=== PATIENT | male | born 1960 | race Two or more races ===

== ENCOUNTER → 2017-06-12 | Outpatient (CLI) | payer OTHER | END | disposition home or self-care (01) | LOC: HKI 14:25 | DX: M16.12 Unilateral primary osteoarthritis, left hip (principal) | CPT/HCPCS: Z7500 ==

== ENCOUNTER → 2017-08-25 | Outpatient (CLI) | payer OTHER | END | disposition home or self-care (01) | LOC: HKI 09:57 | DX: Z01.818 Encounter for other preprocedural examination (principal) | CPT/HCPCS: Z7500 ==

== ENCOUNTER 2017-08-28 08:49 | Inpatient (IN) | payer OTHER ==
[2017-08-28 09:49] LABS: ADD MAN DIFF? NO
[2017-08-28 09:51] LABS: WHITE BLOOD COUNT 8.7 10^3/ul (4.8-10.8)
[2017-08-28 09:51] LABS: BASOPHILS % 0.3 % (0.0-2.0); EOSINOPHILS # 0.1 10^3/ul (0.0-0.5); HEMATOCRIT 44.4 % (42.0-52.0); HEMOGLOBIN 15.5 g/dl (14.0-18.0); LYMPHOCYTES # 1.8 10^3/ul (0.8-2.9); LYMPHOCYTES % 20.6 % (15.0-51.0); MEAN CORPUSCULAR HEMOGLOBIN 30.6 pg (29.0-33.0); MEAN CORPUSCULAR HGB CONC 34.9 g/dl (32.0-37.0); MEAN CORPUSCULAR VOLUME 87.7 fl (82.0-101.0); MEAN PLATELET VOLUME 10.1 fl (7.4-10.4); MONOCYTE # 0.8 10^3/ul (0.3-0.9); MONOCYTES % 9.1 % (0.0-11.0); NEUTROPHILS % 68.7 % (39.0-77.0); PLATELET COUNT 276 10^3/UL (140-415); RED BLOOD COUNT 5.06 10^6/ul (4.70-6.10)
[2017-08-28] MEDS ORDERED: CEFAZOLIN 2 GM/50 ML (PMX) 50 ML IVPB (10:00)
[2017-08-28] MEDS: LACTATED RINGER'S 1,000 ML IV* (10:00)
[2017-08-28] MEDS ORDERED: TRANEXAMIC ACID 1,000 MG in NS 100 ML INTRA-OP X1 IVPB (10:00)
[2017-08-28 10:07] LABS: ALANINE AMINOTRANSFERASE 41 IU/L (13-69); ALBUMIN 4.3 g/dl (3.3-4.9); ALKALINE PHOSPHATASE 82 IU/L (42-121); ANION GAP 15 (8-16); ASPARTATE AMINO TRANSFERASE 30 IU/L (15-46); BILIRUBIN,INDIRECT 1.6 mg/dl (0-1.1); BILIRUBIN,TOTAL 1.6 mg/dl (0.2-1.3); CARBON DIOXIDE 26 mmol/L (21-31); CHLORIDE 105 mmol/L (97-110); GLUCOSE 92 mg/dl (70-220); TOTAL PROTEIN 8.2 g/dl (6.1-8.1)
[2017-08-28 10:09] LABS: BLOOD UREA NITROGEN 20 mg/dl (7-20); CALCIUM 9.2 mg/dl (8.4-10.2); CREATININE 0.65 mg/dl (0.61-1.24); POTASSIUM 4.3 mmol/L (3.5-5.1); SODIUM 142 mmol/L (135-144)
[2017-08-28 10:10] LABS: INR 1.08; PROTIME 14.1 Sec (11.9-14.9); PT RATIO 1.1
[2017-08-28 10:11] LABS: PARTIAL THROMBOPLASTIN TIME 30.5 Sec (25.0-35.0)
[2017-08-28] MEDS: oxyCODONE (CR) 10 MG TAB [oxyCONTIN] PO (10:14)
[2017-08-28] MEDS: LANSOPRAZOLE 30 MG CAP PO (10:14)
[2017-08-28] MEDS: ONDANSETRON 4 MG INJ IV ×3 (10:14→20:42)
[2017-08-28] MEDS: CELECOXIB 200 MG CAP PO (10:14)
[2017-08-28] MEDS: DEXAMETHASONE 4 MG/ML 1 ML INJ IV (10:14)
[2017-08-28] MEDS: ACETAMINOPHEN 1000MG/100ML IV 100 ML IVPB (10:15)
[2017-08-28] MEDS: HIP PAIN COCKTAIL (CEFUROXIME) INJ ×2 (11:00→12:56)
[2017-08-28] MEDS ORDERED: LIDOCAINE 2% (SDV) 5 ML INJ (11:34)
[2017-08-28] MEDS ORDERED: NEOSTIGMINE 3 MG/3 ML SYRINGE ×2 (11:34→14:14)
[2017-08-28] MEDS ORDERED: SUCCINYLCHOLINE CHLORIDE 100 MG/5 ML SYG IV (11:34)
[2017-08-28] MEDS ORDERED: GLYCOPYRROLATE 0.4 MG INJ ×2 (11:34→14:14)
[2017-08-28] MEDS ORDERED: PROPOFOL 20 ML (11:34)
[2017-08-28] MEDS ORDERED: ROCURONIUM 50 MG INJ (11:34)
[2017-08-28] MEDS ORDERED: morphine SULFATE/PF (10 MG/10 ML) INJ (11:35)
[2017-08-28] MEDS ORDERED: BUPIVACAINE 0.75%/DEXT (SPINAL) 2 ML INJ (11:35)
[2017-08-28] MEDS ORDERED: CEFAZOLIN 1 GM INJ (11:35)
[2017-08-28] MEDS: TRANEXAMIC ACID 1,000 MG in NS 100 ML PRE-OP X1 IVPB ×2 (12:15→12:57)
[2017-08-28] MEDS: BACITRACIN 50000 UNITS INJ (12:56)
[2017-08-28] MEDS: POLYMYXIN B 500000 UNIT INJ (12:56)
[2017-08-28] MEDS ORDERED: TRIMETHOBENZAMIDE 100 MG/ML VIAL IM (15:00)
[2017-08-28] MEDS ORDERED: NACL 0.9% 3 ML SYG IV (15:00)
[2017-08-28] MEDS ORDERED: MAGNESIUM HYDROXIDE 30ML CUP PO ×2 (15:00→18:00)
[2017-08-28] MEDS ORDERED: NA PHOSPHATE/BIPHOS 133 ML ENEMA PR (15:00)
[2017-08-28] MEDS ORDERED: oxyCODONE 5 MG TAB PO ×2 (15:00)
[2017-08-28] MEDS ORDERED: BISACODYL 10 MG SUPP PR (15:00)
[2017-08-28] MEDS ORDERED: SENNA/DOCUSATE NA (8.6MG/50MG) TAB PO (15:00)
[2017-08-28] MEDS ORDERED: ZOLPIDEM 5 MG TAB PO (15:00)
[2017-08-28] MEDS ORDERED: NALOXONE (0.4 MG/ML) INJ IV ×2 (15:00→17:30)
[2017-08-28] MEDS: CEFAZOLIN 1 GM/50 ML (PMX) 50 ML IVPB ×2 (15:40→23:21)
[2017-08-28] MEDS: ASPIRIN (EC) 325 MG TAB PO ×2 (15:41→20:42)
[2017-08-28] MEDS: DOCUSATE SODIUM 100 MG CAP PO (15:41)
[2017-08-28] MEDS ORDERED: ONDANSETRON 4 MG INJ IV ×2 (17:30→18:00)
[2017-08-28] MEDS ORDERED: DIPHENHYDRAMINE 50 MG INJ IV (17:30)
[2017-08-28] MEDS ORDERED: HYDROmorphONE 0.5 MG/0.5 ML SYG IV ×2 (17:30)
[2017-08-28] MEDS ORDERED: LORAZEPAM 0.5 MG TAB PO (18:00)
[2017-08-28] MEDS ORDERED: BISACODYL (EC) 5 MG TAB PO (18:00)
[2017-08-28] MEDS: SOD CHLORIDE 0.9% 1,000 ML IV (18:21)
[2017-08-28] MEDS: DIPHENHYDRAMINE 50 MG INJ IV (20:03)
[2017-08-29] MEDS: ONDANSETRON 4 MG INJ IV ×2 (03:00→09:00)
[2017-08-29] MEDS: DIPHENHYDRAMINE 50 MG INJ IV (04:42)
[2017-08-29 05:08] LABS: ADD MAN DIFF? NO
[2017-08-29 05:14] LABS: WHITE BLOOD COUNT 16.4 10^3/ul (4.8-10.8)
[2017-08-29 05:14] LABS: ABNORMAL IP MESSAGE 1; BASOPHILS % 0.1 % (0.0-2.0); HEMATOCRIT 34.4 % (42.0-52.0); HEMOGLOBIN 11.8 g/dl (14.0-18.0); LYMPHOCYTES # 1.3 10^3/ul (0.8-2.9); LYMPHOCYTES % 7.7 % (15.0-51.0); MEAN CORPUSCULAR HEMOGLOBIN 30.7 pg (29.0-33.0); MEAN CORPUSCULAR HGB CONC 34.3 g/dl (32.0-37.0); MEAN CORPUSCULAR VOLUME 89.6 fl (82.0-101.0); MEAN PLATELET VOLUME 10.8 fl (7.4-10.4); MONOCYTE # 1.7 10^3/ul (0.3-0.9); MONOCYTES % 10.5 % (0.0-11.0); NEUTROPHIL # 13.4 10^3/ul (1.6-7.5); NEUTROPHILS % 81.3 % (39.0-77.0); PLATELET COUNT 237 10^3/UL (140-415); POSITIVE DIFF @See below; RED BLOOD COUNT 3.84 10^6/ul (4.70-6.10); RED CELL DISTRIBUTION WIDTH 12.1 % (11.5-14.5)
[2017-08-29 05:25] LABS: ALANINE AMINOTRANSFERASE 32 IU/L (13-69); ALBUMIN 3.2 g/dl (3.3-4.9); ALKALINE PHOSPHATASE 51 IU/L (42-121); ASPARTATE AMINO TRANSFERASE 26 IU/L (15-46); BILIRUBIN,INDIRECT 0.9 mg/dl (0-1.1); BILIRUBIN,TOTAL 0.9 mg/dl (0.2-1.3); TOTAL PROTEIN 6.2 g/dl (6.1-8.1)
[2017-08-29 05:27] LABS: ANION GAP 13 (8-16); BLOOD UREA NITROGEN 18 mg/dl (7-20); CALCIUM 8.2 mg/dl (8.4-10.2); CARBON DIOXIDE 28 mmol/L (21-31); CHLORIDE 105 mmol/L (97-110); CREATININE 0.63 mg/dl (0.61-1.24); GLUCOSE 113 mg/dl (70-220); POTASSIUM 4.7 mmol/L (3.5-5.1); SODIUM 141 mmol/L (135-144)
[2017-08-29] MEDS: SOD CHLORIDE 0.9% 1,000 ML IV ×2 (06:10→15:37)
[2017-08-29] MEDS: CEFAZOLIN 1 GM/50 ML (PMX) 50 ML IVPB (06:10)
[2017-08-29] MEDS: PANTOPRAZOLE (EC) 40 MG TAB PO (06:10)
[2017-08-29] MEDS: FERROUS FUMARATE (SR) TAB PO ×2 (09:25→20:31)
[2017-08-29] MEDS: DOCUSATE SODIUM 100 MG CAP PO ×2 (09:26→20:30)
[2017-08-29] MEDS: oxyCODONE 5 MG TAB PO ×3 (09:26→20:31)
[2017-08-29] MEDS: ASPIRIN (EC) 325 MG TAB PO ×2 (09:27→20:31)
[2017-08-29] MEDS: BETHANECHOL 25 MG TAB PO ×2 (09:27→14:34)
[2017-08-29] MEDS: CELECOXIB 200 MG CAP PO ×2 (09:27→20:31)
[2017-08-29 10:16] LABS: ADD UMIC NO; UR ASCORBIC ACID NEGATIVE (NEGATIVE); UR BILIRUBIN (Dip) NEGATIVE (NEGATIVE); UR BLOOD (Dip) NEGATIVE (NEGATIVE); UR CLARITY CLEAR (CLEAR); UR COLOR STRAW (YELLOW); UR GLUCOSE (Dip) NEGATIVE (NEGATIVE); UR KETONES (Dip) NEGATIVE (NEGATIVE); UR LEUKOCYTE ESTERASE (Dip) NEGATIVE Leu/ul (NEGATIVE); UR NITRITE (Dip) NEGATIVE (NEGATIVE); UR SPECIFIC GRAVITY (Dip) 1.006 (1.003-1.030); UR TOTAL PROTEIN (Dip) NEGATIVE (NEGATIVE); UR UROBILINOGEN (Dip) NEGATIVE (NEGATIVE)
[2017-08-30] MEDS: DIPHENHYDRAMINE 50 MG INJ IV (01:46)
[2017-08-30] MEDS: SOD CHLORIDE 0.9% 1,000 ML IV (04:07)
[2017-08-30 05:39] LABS: ADD MAN DIFF? NO
[2017-08-30 05:42] LABS: WHITE BLOOD COUNT 9.7 10^3/ul (4.8-10.8)
[2017-08-30 05:42] LABS: BASOPHILS % 0.2 % (0.0-2.0); EOSINOPHILS # 0.1 10^3/ul (0.0-0.5); EOSINOPHILS % 1.1 % (0.0-7.0); HEMOGLOBIN 11.2 g/dl (14.0-18.0); LYMPHOCYTES # 2.7 10^3/ul (0.8-2.9); LYMPHOCYTES % 28.3 % (15.0-51.0); MEAN CORPUSCULAR HEMOGLOBIN 30.5 pg (29.0-33.0); MEAN CORPUSCULAR HGB CONC 33.9 g/dl (32.0-37.0); MEAN CORPUSCULAR VOLUME 89.9 fl (82.0-101.0); MONOCYTE # 1.3 10^3/ul (0.3-0.9); MONOCYTES % 13.3 % (0.0-11.0); NEUTROPHIL # 5.5 10^3/ul (1.6-7.5); NEUTROPHILS % 56.7 % (39.0-77.0); PLATELET COUNT 212 10^3/UL (140-415); RED BLOOD COUNT 3.67 10^6/ul (4.70-6.10); RED CELL DISTRIBUTION WIDTH 12.5 % (11.5-14.5)
[2017-08-30] MEDS: PANTOPRAZOLE (EC) 40 MG TAB PO (05:51)
[2017-08-30 06:02] LABS: ANION GAP 11 (8-16); BLOOD UREA NITROGEN 22 mg/dl (7-20); CALCIUM 8.1 mg/dl (8.4-10.2); CARBON DIOXIDE 28 mmol/L (21-31); CHLORIDE 106 mmol/L (97-110); CREATININE 0.87 mg/dl (0.61-1.24); GLUCOSE 88 mg/dl (70-220); POTASSIUM 3.8 mmol/L (3.5-5.1); SODIUM 141 mmol/L (135-144)
[2017-08-30] MEDS: FERROUS FUMARATE (SR) TAB PO (08:44)
[2017-08-30] MEDS: ASPIRIN (EC) 325 MG TAB PO (08:44)
[2017-08-30] MEDS: CELECOXIB 200 MG CAP PO (08:44)
[2017-08-30] MEDS: DOCUSATE SODIUM 100 MG CAP PO (08:45)
[2017-08-30] MEDS: oxyCODONE 5 MG TAB PO (09:40)
== END 2017-08-30 15:09 | disposition home health service (06) | DRG 470 ==
LOC: REC 08:49 → MS1 17:30
PROC: 0SRB04A Replacement of Left Hip Joint with Ceramic on Polyethylene Synthetic Substitute, Uncemented, Open Approach (ICD-10-PCS; principal; 2017-08-28 11:00)
DX: M16.12 Unilateral primary osteoarthritis, left hip (principal)
CPT/HCPCS: 72170; 73500; 73530; 80048; 80053; 80076; 81003; 85025; 85610; 85730; 86850; 86900; 86901; 86920; 87086; 88304; 88311; 97110; 97116; 97162; 97530

== ENCOUNTER → 2017-09-12 | Outpatient (CLI) | payer OTHER | END | disposition home or self-care (01) | LOC: HKI 10:32 | DX: Z09 Encounter for follow-up examination after completed treatment for conditions other than malignant neoplasm (principal); Z96.642 Presence of left artificial hip joint | CPT/HCPCS: 73502 ==

== ENCOUNTER → 2017-10-13 | Outpatient (CLI) | payer OTHER | END | disposition home or self-care (01) | LOC: HKI 10:02 | DX: Z09 Encounter for follow-up examination after completed treatment for conditions other than malignant neoplasm (principal); Z96.642 Presence of left artificial hip joint | CPT/HCPCS: 73502 ==

== ENCOUNTER → 2017-11-10 | Outpatient (CLI) | payer OTHER | END | disposition home or self-care (01) | LOC: HKI 09:32 | DX: Z09 Encounter for follow-up examination after completed treatment for conditions other than malignant neoplasm (principal); Z96.642 Presence of left artificial hip joint | CPT/HCPCS: 73502 ==

== ENCOUNTER → 2018-03-02 | Outpatient (CLI) | payer OTHER | END | disposition home or self-care (01) | LOC: HKI 09:19 | DX: Z47.1 Aftercare following joint replacement surgery (principal); Z96.642 Presence of left artificial hip joint | CPT/HCPCS: 73502 ==

== ENCOUNTER 2018-10-24 11:13 | Emergency (ER) | payer OTHER ==
[2018-10-24] MEDS: SOD CHLORIDE 0.9% 1,000 ML IV (12:41)
[2018-10-24 12:53] LABS: ADD MAN DIFF? NO
[2018-10-24] MEDS ORDERED: LORAZEPAM 2 MG INJ (12:59)
[2018-10-24 13:01] LABS: BASOPHILS % 0.4 % (0.0-2.0); EOSINOPHILS % 0.1 % (0.0-7.0); HEMOGLOBIN 15.4 g/dl (14.0-18.0); LYMPHOCYTES # 2.9 10^3/ul (0.8-2.9); LYMPHOCYTES % 28.4 % (15.0-51.0); MEAN CORPUSCULAR HEMOGLOBIN 30.5 pg (29.0-33.0); MEAN CORPUSCULAR HGB CONC 34.2 g/dl (32.0-37.0); MEAN CORPUSCULAR VOLUME 89.1 fl (82.0-101.0); MEAN PLATELET VOLUME 10.1 fl (7.4-10.4); MONOCYTE # 0.9 10^3/ul (0.3-0.9); MONOCYTES % 8.8 % (0.0-11.0); NEUTROPHIL # 6.4 10^3/ul (1.6-7.5); NEUTROPHILS % 61.9 % (39.0-77.0); PLATELET COUNT 305 10^3/UL (140-415); RED BLOOD COUNT 5.05 10^6/ul (4.70-6.10)
[2018-10-24 13:01] LABS: WHITE BLOOD COUNT 10.4 10^3/ul (4.8-10.8)
[2018-10-24 13:22] LABS: ETHANOL < 10.0 mg/dl (0-0)
[2018-10-24 13:23] LABS: ALANINE AMINOTRANSFERASE 37 IU/L (13-69); ALBUMIN 4.2 g/dl (3.3-4.9); ALBUMIN/GLOBULIN RATIO 1.05; ALKALINE PHOSPHATASE 97 IU/L (42-121); ANION GAP 11 (5-13); ASPARTATE AMINO TRANSFERASE 33 IU/L (15-46); BILIRUBIN,INDIRECT 1.1 mg/dl (0-1.1); BILIRUBIN,TOTAL 1.1 mg/dl (0.2-1.3); BLOOD UREA NITROGEN 11 mg/dl (7-20); CALCIUM 9.1 mg/dl (8.4-10.2); CARBON DIOXIDE 24 mmol/L (21-31); CHLORIDE 104 mmol/L (97-110); CREATININE 0.65 mg/dl (0.61-1.24); Estimated GFR > 60 mL/min (>60); GLUCOSE 153 mg/dl (70-220); LIPASE 215 U/L (23-300); POTASSIUM 3.5 mmol/L (3.5-5.1); SODIUM 139 mmol/L (135-144); TOTAL PROTEIN 8.2 g/dl (6.1-8.1)
[2018-10-24 13:34] LABS: TROPONIN-I 0.017 ng/ml (0.000-0.120)
[2018-10-24 13:50] LABS: ADD UMIC YES; UR ASCORBIC ACID NEGATIVE (NEGATIVE); UR BILIRUBIN (Dip) NEGATIVE (NEGATIVE); UR BLOOD (Dip) 1+ mg/dL (NEGATIVE); UR CLARITY CLEAR (CLEAR); UR COLOR YELLOW (YELLOW); UR GLUCOSE (Dip) NEGATIVE (NEGATIVE); UR KETONES (Dip) NEGATIVE (NEGATIVE); UR LEUKOCYTE ESTERASE (Dip) NEGATIVE Leu/ul (NEGATIVE); UR NITRITE (Dip) NEGATIVE (NEGATIVE); UR RBC 2 /HPF (0-5); UR SPECIFIC GRAVITY (Dip) 1.011 (1.003-1.030); UR TOTAL PROTEIN (Dip) NEGATIVE (NEGATIVE); UR UROBILINOGEN (Dip) NEGATIVE (NEGATIVE); UR WBC 3 /HPF (0-5)
[2018-10-24 14:04] LABS: AMPHETAMINE/METHAMPHETAMINE Negative (NEGATIVE); BARBITURATES Negative (NEGATIVE); BENZODIAZEPINES Negative (NEGATIVE); CANNABINOIDS Negative (NEGATIVE); COCAINE Negative (NEGATIVE); OPIATES Negative (NEGATIVE)
[2018-10-25] MEDS: ACETAMINOPHEN 500 MG TAB PO (10:12)
== END 2018-10-25 17:49 | disposition short-term general hospital (02) ==
LOC: E/R 10-25 17:49
DX: F19.959 Other psychoactive substance use, unspecified with psychoactive substance-induced psychotic disorder, unspecified (principal); F32.3 Major depressive disorder, single episode, severe with psychotic features; R07.9 Chest pain, unspecified; R41.82 Altered mental status, unspecified
CPT/HCPCS: 36415; 70450; 71045; 80053; 80307; 81001; 82962; 83690; 84484; 85025; 93005; 99285-25